=== PATIENT | female | born 1975 | race Caucasian/White ===

== ENCOUNTER 2016-11-25 05:40 | Inpatient (IN) | payer BC ==
[2016-11-25] VITALS (7 sets, daily range): BP systolic 118–138; BP diastolic 58–75; PULSE 64–77; RESP 18–19; Ht 170.2 cm; Wt 100.2 kg
[~2016-11-25] VITALS: Ht 170.2 cm; Wt 100.2 kg
--- NOTE | 2016-11-25 05:49 | NSTRPT ---
NST Information Datetime Report Generated by CPN: 11/25/2016 05:48 Datetime: 11/22/2016 13:55 NST Information EGA: 37.2 Test Number: 8 Time on Monitor: 11/22/2016 14:09 Time off Monitor: 11/22/2016 14:43 NST Duration (Min): 34 Reason for NST: Diabetes Mellitus; Other Reason for NST Other: A1DM, AMA Test and Monitor Explained: Monitor Explained; Test Explained; Verbalized Understanding Pulse: 80 Resp: 18 SBP: 118 DBP: 58 Test Evaluation NST Interventions: None Patient States Movement: Present Contraction Frequency: none FHR Baseline : 130 Variability: Moderate 6-25bpm Accelerations: 15X15 Decelerations: None FHR Category: Category I NST Results: Reactive Comments: Only NST today, as ordered. 1400-Pt home undelivered with labor precautions, kick count instructions reviewed and follo w up NST appt given. States understanding and denies further questions at this time. Electronically Signed By E-Signature: with User ID: [id number] Datetime: 11/19/2016 09:13 NST Information EGA: 36.6 Test Number: 7 Time on Monitor: 11/19/2016 09:51 Time off Monitor: 11/19/2016 10:46 NST Duration (Min): 55 Reason for NST: Diabetes Mellitus; Other Reason for NST Other: A1DM, AMA Test and Monitor Explained: Monitor Explained; Test Explained; Verbalized Understanding; Breastfee ding Info Given Pulse: 82 Resp: 20 SBP: 125 DBP: 57 Test Evaluation NST Interventions: Reposition Patient Patient States Movement: Present Contraction Frequency: irregular - pt states non painful only tightening FHR Baseline : 135 Variability: Moderate 6-25bpm Accelerations: 15X15 Decelerations: None FHR Category: Category I NST Results: Reactive Comments: To u/s. JONATHAN 13.7, cephalic presentation. EFM on. Pt has no questions. 1050-Pt home undelivered with labor precautions, kick count instructions reviewed and follo w up NST appt given. States understanding and denies further questions at this time. Electronically Signed By E-Signature: with User ID: [id number] Datetime: 11/04/2016 09:06 NST Information EGA: 34.5 NST Duration (Min): 23 Datetime: 10/31/2016 09:13 NST Information EGA: 34.1 NST Duration (Min): 24 Datetime: 10/28/2016 08:30 NST Information EGA: 33.5 NST Duration (Min): 31 Datetime: 10/24/2016 08:15 NST Information EGA: 33.1 NST Duration (Min): 32 Datetime: 10/22/2016 10:51 NST Information EGA: 32.6 NST Duration (Min): 21 Datetime: 10/17/2016 13:32 NST Information EGA: 32.1 NST Duration (Min): 21 Datetime: 10/17/2016 13:23 NST Duration (Min): 41
[2016-11-25] MEDS ORDERED: PREN1TAB79 PO (06:18)
[2016-11-25] MEDS: LACTATED RINGER'S 1,000 ML IV SCH ×5 (06:20→21:44)
[2016-11-25] MEDS ORDERED: METHYLERGONOVINE 0.2 MG INJ IM PRN ×2 (06:30→08:30)
[2016-11-25] MEDS ORDERED: CLINDAMYCIN 900 MG/D5W (PMX) 50 ML IV SCH (06:30)
[2016-11-25] MEDS ORDERED: MISOPROSTOL 200 MCG TAB PR PRN ×2 (06:30→08:30)
[2016-11-25] MEDS ORDERED: OXYTOCIN 30 UNITS/LR 500 ML IV SCH (06:30)
[2016-11-25] MEDS ORDERED: OXYTOCIN 30 UNITS/LR 500 ML IV PRN ×2 (06:30→08:30)
[2016-11-25] MEDS ORDERED: CARBOPROST 250 MCG INJ IM PRN ×2 (06:30→08:30)
[2016-11-25 06:56] LABS: BASOPHIL # 0.1 10^3/ul (0.0-0.1); BASOPHILS % 0.5 % (0.0-2.0); EOSINOPHILS # 0.1 10^3/ul (0.0-0.5); EOSINOPHILS % 0.6 % (0.0-7.0); HEMATOCRIT 37.4 % (37.0-47.0); HEMOGLOBIN 12.1 g/dl (12.0-16.0); INR 0.89; LYMPHOCYTES # 3.2 10^3/ul (0.8-2.9); LYMPHOCYTES % 34.6 % (15.0-51.0); MEAN CORPUSCULAR HEMOGLOBIN 26.4 pg (29.0-33.0); MEAN CORPUSCULAR HGB CONC 32.4 g/dl (32.0-37.0); MEAN CORPUSCULAR VOLUME 81.7 fl (82.0-101.0); MEAN PLATELET VOLUME 10.6 fl (7.4-10.4); MONOCYTE # 0.7 10^3/ul (0.3-0.9); MONOCYTES % 7.5 % (0.0-11.0); NEUTROPHIL # 5.3 10^3/ul (1.6-7.5); NEUTROPHILS % 56.5 % (39.0-77.0); PLATELET COUNT 183 10^3/UL (140-415); PT RATIO 0.9; RED BLOOD COUNT 4.58 10^6/ul (4.20-5.40); WHITE BLOOD COUNT 9.3 10^3/ul (4.8-10.8)
[2016-11-25] MEDS ORDERED: OXYTOCIN 30 UNITS/LR 500 ML BAG IV ONE (07:00)
[2016-11-25] MEDS ORDERED: PHENYLephrine (100 MCG/ML) 5ML SYG ONE (07:12)
[2016-11-25] MEDS ORDERED: OXYTOCIN 10 UNIT INJ ONE (07:12)
[2016-11-25] MEDS ORDERED: morphine SULFATE/PF (10 MG/10 ML) INJ ONE (07:12)
[2016-11-25] MEDS ORDERED: ONDANSETRON 4 MG INJ ONE (07:12)
[2016-11-25] MEDS ORDERED: LANOLIN 7 GM TUBE TOP PRN (08:30)
[2016-11-25] MEDS ORDERED: OXYCODONE/ACETAMINOPHEN (5/325) TAB PO PRN (08:30)
--- NOTE | 2016-11-25 08:34 | SIPON ---
Date/Time of Note Date/Time of Note Se dictated report DATE: 11/25/16 TIME: 08:31 Operative Report Preoperative Diagnosis Previous in active labor.Gestational diabetic.Multiparity. Postoperative Diagnosis Same. baby boy Operation/Procedure Performed Repeat .Bilateral tubal ligation. Surgeon Dr.Carlos Al Briceno civil engineering assistant . Anesthesia: spinal Estimated blood loss: other Transfusion Required none Specimen Portion of bilateral fallopian tubes. Grafts/Implants none Complications none GISELLE BRICENO MD Nov 25, 2016 08:34
--- NOTE | 2016-11-25 08:48 | PREOPHP ---
DATE OF ADMISSION: 11/25/2016 CHIEF COMPLAINT: Labor pains. HISTORY OF PRESENT ILLNESS: This is a 41-year-old female, 4, para 3, with a previous section who had already been scheduled for a repeat section and tubal ligation, but presented today in active labor. Her EDC confirmed by early and serial ultrasounds with the [facility] group is . She has also requested sterilization on the basis of multiparity. Both the section and a tubal ligation gave been described and discussed with the patient in detail in the office. The alternatives, , benefits, risks, and possible complications as well as a 1% failure rate of the tubal ligation were discussed at great length. She was allowed to ask questions and all her questions were answered to her satisfaction, and she signed the appropriate surgical informed consents. PAST MEDICAL HISTORY: The patient denies any medical problems including diabetes, hypertension, heart disease, liver disease, renal disease, neurological problems or thyroid disease. ALLERGIES: PENICILLIN. MEDICATIONS: She has been taking only vitamins on a regular basis. She has delivered very large babies, last one was 11.9 She is gestational diabetic on diet only. The last baby by section was 11 pounds 9 ounces. REVIEW OF SYSTEMS: Noncontributory. FAMILY HISTORY: Noncontributory. PHYSICAL EXAMINATION: GENERAL: Well-developed and nourished, in no distress, alert and oriented x3. Height 5 feet 7 inches and a weight of 220 pounds. VITAL SIGNS: Showed temperature to be 98, blood pressure 110/70, respirations 16 per minute, the pulse is 80/minute, regular. HEENT: Within normal limits. Pupils are PERRLA. NECK: Supple. Thyroid nonpalpable. There is no lymphadenopathy. BREASTS: Show no masses or lumps. LUNGS: Clear to percussion and auscultation. HEART: Normal sinus rhythm without a murmur. ABDOMEN: Soft. Uterus enlarged to 42 cm above the pubic bone, single baby, longitudinal lie, cephalic presentation. heart rate is category 1 on admission. PELVIC EXAMINATION: Cervix is 100% effaced, 7 to 8 cm with a bulging bag which is intact. EXTREMITIES: Within normal limits. NEUROLOGIC: Also normal. IMPRESSION: 1. 38 weeks' gestation in active labor. 2. Multiparity. 3. Gestational diabetes, diet controlled, with a macrosomic baby. PLAN: The patient is to be delivered by section. Dictated By: GISELLE HUDDLESTON/ZOHREH Conf#: [id number] DID#: [id number] MTDD
[2016-11-25] MEDS ORDERED: OXYTOCIN 30 UNITS/LR 500 ML IVPB ONE (09:35)
[2016-11-25] MEDS ORDERED: DIPHENHYDRAMINE 50 MG INJ IV PRN (11:00)
[2016-11-25] MEDS ORDERED: ONDANSETRON 4 MG INJ IV PRN (11:00)
[2016-11-25] MEDS ORDERED: NALOXONE (0.4 MG/ML) INJ IV PRN (11:00)
[2016-11-25] MEDS ORDERED: morphine 2 MG INJ IV PRN (11:00)
[2016-11-25] MEDS: KETOROLAC 30 MG INJ IV PRN ×2 (11:03→18:05)
--- NOTE | 2016-11-25 11:07 | OPR ---
DATE OF OPERATION: PREOPERATIVE DIAGNOSES: 1. 37 and 5 gestation in active labor. 2. Previous section. 3. Gestational diabetes. 4. Suspected microsomia. 5. Multiparity. POSTOPERATIVE DIAGNOSES: 1. 37 and 5 gestation in active labor. 2. Previous section. 3. Gestational diabetes. 4. Suspected microsomia. 5. Multiparity. FINDINGS: A baby boy, weight 8 pounds, had scores of 8 and 9. OPERATION PERFORMED: Repeat low segment transverse section and bilateral tubal ligation. SURGEON: Giselle Briceno MD B[employer] ATTENDANT: Dr. Ni ANESTHESIA: Spinal. ANESTHESIOLOGIST: Dr. Jackson ESTIMATED BLOOD LOSS: 800 mL. COMPLICATIONS: None. SPECIMENS: Portions of bilateral fallopian tubes were sent. PROCEDURE AND FINDINGS: With the patient under spinal anesthesia, lying on the table in the dorsal recumbent position, tilted to the left side. She had a Ragsdale catheter draining her bladder. Her ab domen and upper thighs were prepped with ChloraPrep and after 3 minutes, she was dressed in the usua l sterile fashion. A Pfannenstiel incision was done and carried through all layers of abdominal wal l with ease. Once in the abdomen, the uterine segment was opened transversely high and a living male child was de livered and immediately handed to the respiratory team supervisor electron tube processing who found the baby boy to have scores of 8 at first minute and 9 at five minutes. A sample of cord blood was obtained. The placen ban was delivered. The uterine cavity cleaned with a clean laparotomy pad. Then, the incision in th e uterus was closed in layers with a continuous running stitch of double 0 PDS. Good hemostasis was obtained. The tubes and ovaries were found to be normal. The tubal ligation was started on the le ft side, picking the tube in its mid portion with a [place] clamp and tying it on its base twice wit h plain 0 catgut. The portion of tube was cut and sent to pathology. The same was repeated on the contralateral side. The pelvis was thoroughly cleaned with moist laparotomy pads. The incisions we re checked for bleeders and there were none. There was good hemostasis. Then, the abdomen was clos ed in layers starting with the peritoneum with continuous stitch of 2-0 chromic catgut. The fascia was closed with 2 convergent running sutures of 0 Vicryl. Finally, the edges of skin were brought t ogether with subcuticular 4-0 Monocryl. Sterile pressure dressing was applied and the patient was t aken to recovery room with all vital signs stable. EBL was 800 mL of blood. Needle, sponge and ins trument count during her procedure was correct twice. Dictated By: GISELLE BRICENO MD CR/NTS Conf#: [id number] DID#: [id number] CC: ALEX NI MD;*EndCC*
[2016-11-25] MEDS: CLINDAMYCIN 900 MG/D5W (PMX) 50 ML IVPB SCH ×2 (13:10→18:05)
[2016-11-25] MEDS: IBUPROFEN 800 MG TAB PO SCH ×2 (14:00→22:00)
[2016-11-26] MEDS: CLINDAMYCIN 900 MG/D5W (PMX) 50 ML IVPB SCH ×2 (00:03→05:53)
[2016-11-26 00:05] VITALS: BP 124/59; PULSE 77; RESP 19
[2016-11-26] MEDS: KETOROLAC 30 MG INJ IV PRN (02:21)
[2016-11-26 04:05] VITALS: BP 109/57; PULSE 72; RESP 18
[2016-11-26] MEDS: LACTATED RINGER'S 1,000 ML IV SCH (05:54)
[2016-11-26] MEDS: IBUPROFEN 800 MG TAB PO SCH ×3 (06:00→22:02)
[2016-11-26 08:00] VITALS: BP 123/70; PULSE 72; RESP 20
[2016-11-26] MEDS: OXYCODONE/ACETAMINOPHEN (5/325) TAB PO PRN ×3 (08:24→22:02)
--- NOTE | 2016-11-26 08:25 | PN ---
Date/Time of Note Date/Time of Note DATE: 11/26/16 TIME: 08:24 OB Subjective Subjective Subjective Doing well,nursing without problems. OB Objective Objective Objective Afebrile. Abdomen,soft Dressing dry.Lochia,normal HEENT: WNL Heart: Rhythm Normal Lungs: Clear Abdomen: WNL Extremities: Normal GISELLE GORMAN MD Nov 26, 2016 08:25
[2016-11-26 10:51] LABS: BASOPHILS % 0.3 % (0.0-2.0); EOSINOPHILS % 0.2 % (0.0-7.0); HEMOGLOBIN 10.7 g/dl (12.0-16.0); LYMPHOCYTES % 19.6 % (15.0-51.0); MEAN CORPUSCULAR HEMOGLOBIN 25.8 pg (29.0-33.0); MEAN CORPUSCULAR HGB CONC 31.5 g/dl (32.0-37.0); MEAN CORPUSCULAR VOLUME 82.1 fl (82.0-101.0); MEAN PLATELET VOLUME 10.5 fl (7.4-10.4); MONOCYTE # 0.6 10^3/ul (0.3-0.9); MONOCYTES % 6.2 % (0.0-11.0); NEUTROPHIL # 7.6 10^3/ul (1.6-7.5); NEUTROPHILS % 73.3 % (39.0-77.0); PLATELET COUNT 159 10^3/UL (140-415); RED BLOOD COUNT 4.14 10^6/ul (4.20-5.40); WHITE BLOOD COUNT 10.4 10^3/ul (4.8-10.8)
[2016-11-26 20:30] VITALS: BP 130/66; RESP 18
[2016-11-27] MEDS: OXYCODONE/ACETAMINOPHEN (5/325) TAB PO PRN (04:08)
[2016-11-27 04:15] VITALS: BP 120/62; PULSE 83; RESP 20
[2016-11-27] MEDS: IBUPROFEN 800 MG TAB PO SCH ×3 (05:51→21:33)
[2016-11-27 08:00] VITALS: BP 117/69; PULSE 80; RESP 18
[2016-11-27] MEDS ORDERED: INFLUENZA VIRUS VACCINE 0.5 ML (DISPENSING) IM* ONE (09:00)
--- NOTE | 2016-11-27 09:45 | PN ---
Date/Time of Note Date/Time of Note DATE: 11/27/16 TIME: 09:44 OB Subjective Subjective Subjective Doing well,good pain control. OB Objective Objective Objective Afebrile.Passes gases.Incision healing well. HEENT: WNL Heart: Rhythm Normal Lungs: Clear Abdomen: WNL Extremities: Normal GISELLE GORMAN MD Nov 27, 2016 09:45
[2016-11-27 17:32] VITALS: BP 124/66; RESP 18
[2016-11-27 20:00] VITALS: BP 136/75; PULSE 70; RESP 70
[2016-11-28 04:30] VITALS: BP 140/72; PULSE 78; RESP 18
[2016-11-28] MEDS: IBUPROFEN 800 MG TAB PO SCH ×2 (06:00→13:37)
[2016-11-28 08:00] VITALS: BP 138/65; PULSE 64; RESP 18
--- NOTE | 2016-11-28 08:50 | PD.PPDC ---
NON LINEAR EDITOR Discharge Instruction Diagnosis Final Diagnosis: Term .Previous .Multiparity Condition Patient Condition: Good Diet Diet: Special Diet Special Diet: 2000 ADA rani diet Activity/Restrictions Activity: Normal Activity May Shower Restrictions: No Lifting No Sexual Activity Nothing in the Vagina No [place] Wound/Drain Care Instructions Wound/Drain Care Instructions: Wash with soap and water Keep clean and dry Follow-up Follow-up with Physician: 1, Week/Weeks Return to clinic for MECHANICAL DESIGN ENGINEER FACILITIES Instructions: Fever greater than 101 Worsening abdominal pain Excessive Vaginal Bleeding Unable to tolerate diet OB Instructions: Depression Surgical Instructions: Incisional Drainage Incisional Redness (Shower and wash hair as usual.) GISELLE GORMAN MD Nov 28, 2016 08:50
[2016-11-28] MEDS ORDERED: DIPHTH/TET/ACEL PERTUSS (ADULT) 0.5 ML VIAL IM* ONE (09:00)
--- NOTE | 2016-11-28 16:15 | DS ---
DATE OF ADMISSION: 11/25/2016 DATE OF DISCHARGE: 11/28/2016 FINAL DIAGNOSES: 1. 38 weeks' gestation. 2. Previous section. 3. Gestational diabetes. 4. The patient presented in active labor 5. Multiparity. SUMMARY: This is a 41-year-old female, 4, para 3 with 3 previous sections who also has requested sterilization at the time of repeat section. She had been previously schedu led at 39 weeks' gestation. She presented in active labor to labor and delivery. This was done und er spinal anesthesia by Dr. Jackson. Postoperatively, she has done well. She was able to tolerate d iet well without any problems. No sign of infection in the incision. She is discharged home on a 2 000 ADA calorie diet in good condition. Dictated By: GISELLE HUDDLESTON/ZOHREH Conf#: [id number] DID#: [id number]
== END 2016-11-28 15:10 | disposition home or self-care (01) | DRG 766 ==
LOC: L-D 05:40 → OBT 05:40 → L-D 06:09 → PP1 12:01
PROVIDERS: ADMIT Specialist; ATTEND Specialist
PROC: 10D00Z1 Extraction of Products of Conception, Low, Open Approach (ICD-10-PCS; principal; 2016-11-25)
PROC: 0UL70ZZ Occlusion of Bilateral Fallopian Tubes, Open Approach (ICD-10-PCS; 2016-11-25)
DX: O99.214 Obesity complicating childbirth (principal); E66.01 Morbid (severe) obesity due to excess calories; Z68.34 Body mass index [BMI] 34.0-34.9, adult; O24.429 Gestational diabetes mellitus in childbirth, unspecified control; O36.63X0 Maternal care for excessive fetal growth, third trimester, not applicable or unspecified; Z30.2 Encounter for sterilization; Z3A.38 38 weeks gestation of pregnancy; Z37.0 Single live birth
CPT/HCPCS: 82962; 85025; 85610; 85730; 86592; 86850; 86900; 86901; 87340; 88302; 90686; 90715; 94760; 99464; G0463; J1885; J2274; J2370; J2405; J2590; J7120

== ENCOUNTER 2017-04-16 09:54 | Day surgery (SDC) | END 2017-04-16 16:18 | disposition home or self-care (01) ==